=== PATIENT | male | born 1970 | race Caucasian/White ===

== ENCOUNTER 2022-04-02 09:00 | Outpatient (CLI) | payer BC, SELFPAY ==
[2022-04-02 15:26] LABS: SARS PCR* Negative SARS-CoV-2 (Negative)
== END 2022-04-02 09:01 | disposition home or self-care (01) ==
LOC: LONREF 09:01
PROVIDERS: PCP Family Medicine; Visit Provider Surgery
DX: Z11.52 Encounter for screening for COVID-19 (principal)
CPT/HCPCS: 87635

== ENCOUNTER 2022-04-05 08:05 | Outpatient (CLI) | payer BC, SELFPAY ==
--- OUTSIDE RECORDS SUMMARY | 2022-04-05 08:10 | XMS_ITS | Clinical Summary ---
:1970 Author Organization [facility] [place] [address] Care Team Providers Name Role Phone Joaquin Negrete MD Primary Care Provider Allergies No known active allergies Medications Medication Sig Dispensed Refills Start Date End Date Status codeine-guaFENesin Take 5-10 mL by 120 mL 0 06/21/2013 Active (ROBITUSSIN AC) 10-100 mouth at bedtime mg/5 mL liquid if needed for Cough (Maximum 60 ml per day). Max dose 60 mL per 24 hrs. atorvastatin (LIPITOR) Take 1 tablet by 30 tablet 0 07/02/2014 Active 20 mg tablet mouth once daily. omeprazole (PRILOSEC) Take 1 capsule by 30 capsule 0 4 Active 40 mg Delayed-Release mouth once daily. capsule Active Problems Problem Noted Date Adenomatous colon polyp 07/03/2014 Overview: Colonoscopy 06/2014 polyp repeat in 5 ye ars Immunizations Name Administration Dates Next Due Influenza, IIV3 (Age >=3 years) 05/25/2007 Social History Tobacco Use Types Packs/Day Years Used Date Never Smoker Alcohol Use Standard Drinks/Week Comments Yes 0 (1 standard drink = 0.6 oz pure alcoho l) occasional Sex Assigned at Date Recorded Not on file Obstetrics History Last Filed Vital Signs Vital Sign Reading Time Taken Comments Blood Pressure 115/74 07/02/2014 11:49 AM COMPLIANCE INTERN Pulse 58 07/02/2014 11:49 AM COMPLIANCE INTERN Temperature 36.3 ??C (97.4 ??F) 06/21/2013 9:11 AM COMPLIANCE INTERN Respiratory Rate 28 06/21/2013 9:11 AM COMPLIANCE INTERN Oxygen Saturation 95% 07/02/2014 11:49 AM COMPLIANCE INTERN Inhaled Oxygen Concentration - - Weight 98.4 kg (217 lb) 06/21/2013 9:11 AM COMPLIANCE INTERN Height - - Body Mass Index - - Plan of Treatment Health Maintenance Due Date Last Done Comments COVID-19 vaccine series (#1) 1970 Tdap 1981 Depression screening for age 12+ 1982 BMI (ht and wt on same day) for age 18+ 1988 Hepatitis C screening for age 18-79 1988 Tetanus booster 1990 Lipids for age 45-75 2015 Zoster (shingles) series for age 50+ (1 of 2) 2020 Influenza for age 50-64 03/18/2022 05/25/2007 Colonoscopy through age 75 07/02/2024 07/02/2014 Results Not on filefrom Last 3 Months Insurance Payer Benefit Plan / Subscriber ID Effective Dates Phone Addre ss Type Group BLUE [employer]OSS [employer] OF [id number] 2012-Present [address] [address] [place] [phone] (Home) [place] [address] Care Teams Motor Coach Operator Relationship Specialty Start Date End Date Joaquin Negrete MD PCP - General Family Practice 07/02/14
== END 2022-04-05 08:06 | disposition home or self-care (01) ==
LOC: OP CLINIC 08:05
PROVIDERS: PCP Family Medicine; Visit Provider Surgery
DX: Z12.11 Encounter for screening for malignant neoplasm of colon (principal); K57.30 Diverticulosis of large intestine without perforation or abscess without bleeding; Z86.010 Personal history of colon polyps
CPT/HCPCS: 45378; 99153; J2250; J3010

== ENCOUNTER 2022-08-27 08:07 | Outpatient (CLI) | payer BC, SELFPAY ==
[2022-08-27 13:58] LABS: Chloride* 109 mmol/L (96-114)
[2022-08-27 13:59] LABS: Potassium* 4.9 mmol/L (3.6-5.1); Sodium* 140 mmol/L (135-149)
[2022-08-27 14:01] LABS: Cholesterol* 175 mg/dL (90-199); Creatinine* 1.1 mg/dL (0.5-1.5); Estimated Glomerular Filt Rate 81 ml/min
[2022-08-27 14:02] LABS: Blood Urea Nitrogen* 15 mg/dL (7-30); Calcium* 9.1 mg/dL (8.4-10.6); Carbon Dioxide* 26 mmol/L (20-32); Glucose* 99 mg/dL (60-115); HDL Cholesterol* 35 mg/dL (>=40); LDL Cholesterol Calculated 109 mg/dL (<100); Triglycerides* 155 mg/dL (40-149)
== END 2022-08-27 08:08 | disposition home or self-care (01) ==
LOC: LONREF 08:07
PROVIDERS: PCP Family Medicine; Visit Provider Family Medicine
DX: E78.5 Hyperlipidemia, unspecified (principal); Z13.1 Encounter for screening for diabetes mellitus
CPT/HCPCS: 80048; 80061

== ENCOUNTER 2023-08-26 09:53 | Outpatient (CLI) | payer BC, SELFPAY ==
--- OUTSIDE RECORDS SUMMARY | 2023-08-26 10:06 | XMS_ITS | Clinical Summary ---
Author Name Unknown Organization [facility] Address [place], [place] [address] Care Team Providers Care Hairspring I Inspector Name Role Phone Joaquin Negrete MD Primary Care Provider [phone] Allergies No known active allergies Medications Medication Sig Dispensed Refills Start Date End Date Status codeine-guaFENesin (ROBITUSSIN AC) 10-100 mg/5 mL liquid Take 5-10 mL by mouth at bedtime if needed for Cough (Maximum 60 ml per day). Max dose 60 mL per 24 hrs. 120 mL 0 06/21/2013 Active atorvastatin (LIPITOR) 20 mg tablet Take 1 tablet by mouth once daily. 30 tablet 0 07/02/2014 Active omeprazole (PRILOSEC) 40 mg Delayed-Release capsule Take 1 capsule by mouth once daily. 30 capsule 0 07/02/2014 Active Active Problems Problem Noted Date Diagnosed Date Adenomatous colon polyp 07/03/2014 Overview: Colonoscopy 06/2014 polyp repeat in 5 years Immunizations Name Administration Dates Next Due Influenza, IIV3 (Age >=3 years) 05/25/2007 Social History Tobacco Use Types Packs/Day Years Used Date Smoking Tobacco: Never Alcohol Use Standard Drinks/Week Comments Yes 0 (1 standard drink = 0.6 oz pur e alcohol) occasional Sex and Gender Information Value Date Recorded Sex Assigned at Not on file Gender Identity Not on file Sexual Orientation Not on file Obstetrics History Last Filed Vital Signs Vital Sign Reading Time Taken Comments Blood Pressure 115/74 07/02/2014 11:49 AM NAVAL ENGINEER Pulse 58 07/02/2014 11:49 AM NAVAL ENGINEER Temperature 36.3 ??C (97.4 ??F) 06/21/2013 9:11 AM CS T Respiratory Rate 28 06/21/2013 9:11 AM NAVAL ENGINEER Oxygen Saturation 95% 07/02/2014 11:49 AM NAVAL ENGINEER Inhaled Oxygen Concentration - - Weight 98.4 kg (217 lb) 06/21/2013 9:11 AM NAVAL ENGINEER Height - - Body Mass Index - - Plan of Treatment Health Maintenance Due Date Last Done Comments COVID-19 vaccine series (#1) 1970 Tdap 1981 Depression screening for age 12+ 1982 HIV for age 15-65 1985 BMI (ht and wt on same day) for age 18+ 1988 Hepatitis C screening for ag e 18-79 1988 Tetanus booster 1990 Lipids for age 45-75 2015 Zoster (shingles) series for age 50+ (1 of 2) 2020 Influenza for age 50-64 03/18/2023 05/25/2007 Colonoscopy through age 75 07/02/2024 07/02/2014 Pneumococcal series for age 6-64 Aged Out No longer eligible based on patient's age to complete this topic Care Teams Hairspring I Inspector Relationship Specialty Start Date End Date Joaquin Negrete MD PCP - General Family Practice 07/02/14
== END 2023-08-26 09:54 | disposition home or self-care (01) ==
PROVIDERS: PCP Family Medicine; Visit Provider Family Medicine
DX: E78.5 Hyperlipidemia, unspecified (principal); Z83.3 Family history of diabetes mellitus; Z12.5 Encounter for screening for malignant neoplasm of prostate; Z13.1 Encounter for screening for diabetes mellitus
CPT/HCPCS: 80048; 80061; G0103

== ENCOUNTER 2024-08-27 09:46 | Outpatient (CLI) | payer BC, SELFPAY | END 2024-08-27 09:47 | disposition home or self-care (01) | PROVIDERS: PCP Family Medicine; Visit Provider Family Medicine | DX: E78.2 Mixed hyperlipidemia (principal) | CPT/HCPCS: 80048; 80061 ==

== ENCOUNTER 2025-05-23 09:02 | Outpatient (CLI) | payer BC, SELFPAY | END 2025-05-23 09:03 | disposition home or self-care (01) | LOC: FRMREF 09:02 | PROVIDERS: PCP Family Medicine | DX: L02.91 Cutaneous abscess, unspecified (principal) | CPT/HCPCS: 87070 ==